=== PATIENT | male | born 1965 | race Two or more races ===

== ENCOUNTER 2018-03-26 10:01 | Emergency (ER) | payer OTHER ==
[~2018-03-26] VITALS: Ht 167.6 cm; Wt 87.2 kg
[~2018-03-26 10:01] MED LIST: CEPH-443 PO; SULF1TAB31 PO
[2018-03-26 10:02] VITALS: BP 118/72; PULSE 72; RESP 20; Ht 167.6 cm; Wt 87.2 kg
[2018-03-26] MEDS ORDERED: IBUP-1542 PO (10:56)
--- NOTE | 2018-03-26 11:06 | ERD ---
ER Documentation Chief Complaint Chief Complaint Complains of left knee pain and swelling x 3 days HPI 52-year-old male was seen here 3 days ago for left prepatellar bursitis return to ED today for recurrence of the bursitis. Patient states that he had the left knee drained at the ED 3 days ago, and was given antibiotics. The fluid has returned his left knee, and he again reports pain with ambulation of the left knee. Denies fever or chills. Denies erythema. ROS All systems reviewed and are negative except as per history of present illness. Medications Home Meds Active Scripts Ibuprofen* (Motrin*) 600 Mg Tab, 600 MG PO Q6H PRN for PAIN AND OR ELEVATED TEMP, #30 TAB Prov:YAIR CARROLL RESTORATIVE COORDINATOR 03/26/18 Sulfamethoxazole/Trimethoprim* (Bactrim Ds* Tablet) 1 Each Tablet, 1 TAB PO BID, #14 TAB Prov:ELIO MCCORMACK MD 03/23/18 Cephalexin* (Keflex*) 500 Mg Capsule, 500 MG PO QID for 7 Days, CAP Prov:ELIO MCCORMACK MD 03/23/18 Reported Medications [None] No Conflict Check 08/16/11 Allergies Allergies: Coded Allergies: No Known Allergies (Verified Allergy, Unknown, 08/16/11) PMhx/Soc History of Surgery: Yes (VASECTOMY) Anesthesia Reaction: No Hx Neurological Disorder: No Hx Respiratory Disorders: No Hx Cardiac Disorders: No Hx Psychiatric Problems: No Hx Miscellaneous Medical Probl: No Hx Alcohol Use: No Hx Substance Use: No Hx Tobacco Use: No Physical Exam Vitals Vital Signs Date Temp Pulse Resp B/P (MAP) Pulse Ox O2 O2 Flow FiO2 Time Delivery Rate 03/26/18 97.1 72 20 118/72 98 10:02 (87) Physical Exam General: Well-developed, well-nourished, conscious and coherent, in no distress Skin: Warm and dry without rash, good texture and turgor Head: Normocephalic without evidence of trauma Chest: Normal AP diameter. Good expansion without retractions. Nontender. Lungs are clear to auscultate bilaterally with good tidal volume Heart: Regular rate and rhythm. No murmur, rub, or gallops heard Extremities: Left knee normal in appearance, with no erythema or swelling. There is a 3 cm area of fluctuance in the prepatellar bursa. The area is not erythematous, not warm to touch. Full range of motion, but with pain at full flexion. Good strength bilaterally. No erythema, ecchymosis, or edema. Peripheral pulses are intact. Sensation intact Neuro: Alert and oriented 4, GCS 15. Procedures/MDM 52-year-old male presents the ED with recurrence of left prepatellar bursitis. There is no sign of infection. I doubt septic arthritis, cellulitis, or necrotizing fasciitis. Dann wrap was applied to the left knee. Patient was noted to be comfortable and neurovascularly intact both before and after the Dann wrap. Patient's symptoms have already improved from his previous visit. He still on antibiotics, I do not get any further information is indicated at this time. Patient advised to continue taking antibiotics as prescribed, and apply heat to the area. Patient appears well, stable for discharge and outpatient management. Medical decision making shared with patient and family. Education provided to patient and family. Patient and family expressed understanding of the plan. Medications on discharge: Ibuprofen. Follow-up: Primary care provider in 1 week or return to ED if worse. Disclaimer: Inadvertent spelling and grammatical errors are likely due to EHR/dictation software use and do not reflect on the overall quality of patient care. Also, please note that the electronic time recorded on this note does not necessarily reflect the actual time of the patient encounter. Departure Diagnosis: Primary Impression: Prepatellar bursitis Laterality: left Qualified Codes: M70.42 - Prepatellar bursitis, left knee Condition: Stable Patient Instructions: Bursitis Referrals: [facility] () Usted se perez hecho un examen mdico de control que le indica que no est en le condicin que requiera tratamiento urgente en el Departamento de Emergencia. Un estudio ms profundo y el tratamiento de perez condicin pueden esperar sin ningn riesgo hasta que usted sea atendida/o en el consultorio de perez mdico o le clnica. Es responsabilidad suya arreglar le scotty para el seguimiento del wiley. MANEJO DE CONDICIONES NO URGENTES EN EL FUTURO 1) Si usted tiene un mdico de atencin primaria: Usted debera llamar a perez mdico de atencin primaria antes de venir al departamento de emergencia. Despus de las horas de consultorio, perez doctor o perez asociado/a est disponible por telfono. El mdico o enfermero de elio en el servicio telefnico puede asesorarle por tavon medio para atender el problema, o wiley contrario se puede programar le scotty. 2) Si usted no tiene un mdico de atencin primaria: Llame al mdico o clnica de referencia que aparece abajo kevin las horas de consultorio para hacer le scotty para que le vean. CLINICAS: [facility] [phone] [address] [facility] [phone] [address] [facility]. [facility] [phone] [facility] [phone] [facility]. [facility] [phone] [id number] [facility] [phone] [address] Additional Instructions: Llame al doctor nombrado abajo (Referral Sources) MAANA y orion le SCOTTY PARA DENTRO DE LE SEMANA. Dgale a la secretaria que nosotros le instruimos hacer esta scotty.Avise o llame si perez condicin se empeora antes de la scotty. YAIR CARROLL NP Mar 26, 2018 11:06
== END 2018-03-26 11:33 | disposition home or self-care (01) ==
LOC: FTE 10:01
DX: M70.42 Prepatellar bursitis, left knee (principal); R40.2412 Glasgow coma scale score 13-15, at arrival to emergency department; Y93.9 Activity, unspecified
CPT/HCPCS: 99282